=== PATIENT | male | born 1970 | race Caucasian/White ===

== ENCOUNTER 2016-08-24 11:10 | Emergency (ER) | payer BC ==
[~2016-08-24] VITALS: Ht 195.6 cm; Wt 89.8 kg
[2016-08-24 11:23] VITALS: TEMP 36.7; Ht 195.6 cm; Wt 89.8 kg
[2016-08-24] MEDS ORDERED: TRAM-10 PO (11:50)
[2016-08-24] MEDS ORDERED: AZITTAB PO (11:50)
--- NOTE | 2016-08-24 11:55 | EMERGENCY ROOM VISIT NOTE ---
History First contact with patient: 11:34 Chief Complaint: HEADACHE Stated Complaint: HEADACHE, CHEST, NUMB ALL OVER History of Present Illness The patient is a 45 year old male who presents to the Emergency Room with complaints of sinus congestion, headache and productive cough. The patient reports that he developed a cold 5 days ago, and the symptoms have significantly worsened over the past 24 hours. He denies any fevers, but has not checked his temperature. He has had chills and a poor appetite. He denies any diarrhea or urinary symptoms. He rates his discomfort a 5 out of 10. He has not taken any analgesics today for his symptoms, or other [id number] products. Review of Systems 10 system review was performed and was negative except for pertinent positives and negatives as indicated in history of present illness Past Medical/Surgical History Medical Problems: (1) negative history for asthma (2) negative history for cardiac problems (3) negative history for diabetes (4) negative history for hypertension (5) negative history for pneumonia (6) Orthopedic surgery (right wrist, right hand, right shoulder) Family History Unremarkable Social History Smoking Status: Former Smoker Alcohol Use: occasionally Drug Use: none Marital Status: Housing Status: lives with family Occupation Status: employed Current/Historical Medications Scheduled Azithromycin (Zithromax Z-Ron), 0 PO UD Scheduled PRN Tramadol (Ultram), 1-2 TAB PO Q4H PRN for Pain Allergies Coded Allergies: Amoxicillin (Verified Allergy, Intermediate, rash, 05/03/16) Rofecoxib (Verified Allergy, Unknown, PEELING SKIN, 05/03/16) Physical Exam Vital Signs Date Time Temp Pulse Resp B/P Pulse Ox O2 Delivery O2 Flow Rate FiO2 08/24/16 11:23 36.7 73 16 129/76 97 Room Air Physical Exam CONSTITUTIONAL: Healthy and well nourished. Alert and oriented X 3 with positive affect. She does not appear acutely or toxic. HEENT: Normocephalic, atraumatic. Pupils equal, round and reactive. Examination of the ears shows significant TM bulging without air-fluid levels or purulent effusion. No erythema. Clear rhinorrhea is noted. The patient has tenderness to palpation and percussion over the frontal and maxillary sinuses. 9 OROPHARYNX: Mild posterior frontal erythema without postnasal drip, tonsillar hypertrophy or exudates. NECK: Full active range of motion without discomfort. No nuchal rigidity. LYMPHATICS: No cervical chain adenopathy. RESPIRATORY: Clear to auscultation bilaterally with no wheezing, crackles, rhonchi or stridor. CARDIOVASCULAR: Regular rate and rhythm with no murmurs, rubs or gallops. MUSCULOSKELETAL: Full range of motion of all joints without discomfort. INTEGUMENTARY: No rash or other significant dermatologic conditions noted. NEUROLOGIC: No focal neurologic deficits noted. Medical Decision & Procedures ED Course Patient history and physical exam were performed. Nurse's notes were reviewed. Vital signs were reviewed and were normal. The patient will be provided a prescription for a Z-Ron and altered. He was encouraged to alternate ibuprofen and Tylenol for baseline pain relief. The patient was also urged to take Mucinex, Sudafed and Robitussin-DM for additional symptomatic relief. Follow- up with PCP if symptoms are not improving within the next week. The patient voiced understanding of all discharge instructions, and rated his overall discomfort a 4 out of 10 at the time of discharge. Medical Decision Impression Primary Impression: Acute sinusitis Additional Impression: Bronchitis Departure Information Dispostion Home / Self-Care Prescriptions Tramadol (Ultram) 50 Mg Tab 1-2 TAB PO Q4H Y for Pain, #15 TAB For Initial Treatment Prov: Radames Caldwell PA 08/24/16 Azithromycin (ZITHROMAX Z-RON) 250 Mg Tab 0 PO UD, #1 PKT 2 TABS DAY 1, THEN 1 TAB DAILY FOR 4 DAYS Prov: Radames Caldwell PA 08/24/16 Forms HOME CARE DOCUMENTATION FORM, IMPORTANT VISIT INFORMATION Patient Instructions A Signature Page, [facility] Additional Instructions Complete Zithromax antibiotics as prescribed. Suggest taking Mucinex and Sudafed. Robitussin-DM as needed for additional cough relief. Ibuprofen 800 mg and/or Tylenol 1000 mg every 8 hours. You may also alternate these medications for more effective pain relief: Ibuprofen --4 HRS--> Tylenol --4 HRS--> ibuprofen --4 HRS--> Tylenol .... Follow-up with your family doctor if symptoms are not improving within the next 5-7 days. FOR WORK: The patient was in the emergency department today for evaluation of symptoms that have been ongoing for the past 5 days.
[2016-08-24 12:32] VITALS: BP 116/77; PULSE 69; O2SAT 95
== END 2016-08-24 12:34 | disposition home or self-care (01) ==
LOC: C.EDB 11:13 → C.EDC 12:34
DX: J01.90 Acute sinusitis, unspecified (principal); J40 Bronchitis, not specified as acute or chronic; Z87.891 Personal history of nicotine dependence

== ENCOUNTER 2016-11-24 16:16 | Emergency (ER) | payer BC ==
[~2016-11-24] VITALS: Ht 195.6 cm; Wt 90.9 kg
[~2016-11-24 16:16] MED LIST: TRAM-10 PO
[2016-11-24 16:21] VITALS: BP 129/82; TEMP 36.7; Ht 195.6 cm; Wt 90.9 kg
--- NOTE | 2016-11-24 16:50 | EMERGENCY ROOM VISIT NOTE ---
History First contact with patient: 16:31 Chief Complaint: ELBOW PAIN/INJURY Stated Complaint: RT SHOULDER & ELBOW PAIN History of Present Illness The patient is a 46 year old male who presents to the Emergency Room with complaints of right elbow pain. The patient states he has had right elbow pain for approximately one month. 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 He has had pain and swelling since then. He has seen both Dr. Taylor and Dr. Simon. He states he has had cortisone injections without any relief. He states that sometimes in the evenings he feels numbness in his hand and arm. He states he has never had an x-ray. He denies any fevers. He denies any redness or warmth. He denies any neck pain. Review of Systems A 10 system review of systems was completed with positives and pertinent negatives listed in the HPI. Past Medical/Surgical History Medical Problems: (1) negative history for asthma (2) negative history for cardiac problems (3) negative history for diabetes (4) negative history for hypertension (5) negative history for pneumonia (6) Orthopedic surgery (right wrist, right hand, right shoulder) Social History Smoking Status: Current Some Day Smoker Alcohol Use: occasionally Drug Use: none Marital Status: Housing Status: lives with family Occupation Status: employed Current/Historical Medications Scheduled PRN Hydrocodone/Acetaminophen 5MG/325MG (Chelsea 5MG/325MG), 1 TABLET PO Q4H PRN for Pain Allergies Coded Allergies: Amoxicillin (Verified Allergy, Intermediate, rash, 05/03/16) Rofecoxib (Verified Allergy, Unknown, PEELING SKIN, 05/03/16) Physical Exam Vital Signs Date Time Temp Pulse Resp B/P Pulse Ox O2 Delivery O2 Flow Rate FiO2 11/24/16 17:50 63 16 98 11/24/16 16:21 36.7 64 18 129/82 99 Room Air Physical Exam VITALS: Vitals are noted on the nurse's note and reviewed by myself. Vital signs stable. GENERAL: This is a 46-year-old male, in no acute distress, nondiaphoretic, well- developed well-nourished. SKIN: The skin was without rashes, erythema, edema, or bruising. There is no tenting of the skin. Capillary reflex less than 2 seconds. HEAD: Normocephalic atraumatic. EARS: The external ears are normal in appearance. EYES: Pupils equal round and reactive to light and accommodation. Conjunctivae without injection, sclerae without icterus. Extraocular movements intact. NOSE: Patent, turbinates without inflammation or discharge. MOUTH: Mucous membranes moist. Tonsils are not enlarged. Pharynx without erythema or exudate. Uvula midline. Airway patent. Tongue does not deviate. NECK: Supple without nuchal rigidity. Cervical spine is nontender. No JVD. HEART: Regular rate and rhythm without murmurs gallops or rubs. LUNGS: Clear to auscultation bilaterally without wheezes, rales or rhonchi. No retractions or accessory muscle use. MUSCULOSKELETAL: No muscle atrophy, erythema, or edema noted. Full range of motion with moderate tenderness to palpation in the right elbow. There is decreased range of motion in the right elbow, specifically supination and pronation. Normal gait. Strength 5/5 throughout. NEURO: Patient was alert and oriented to person place and time. No focal neurological deficits. Medical Decision & Procedures ER Provider Diagnostic Interpretation: RIGHT ELBOW 3 VIEWS HISTORY: right elbow pain Right COMPARISON: Right elbow 12/18/2015. FINDINGS: There is no fracture or dislocation. Soft tissues are unremarkable. No joint effusion. The punctate intra-articular loose body is again noted. IMPRESSION: No fracture or dislocation within the right elbow. No change in the punctate intra-articular loose body within the elbow joint. ED Course The patient was seen and examined. Previous visits were reviewed. The patient does not have a fever. He does not have any significant erythema, warmth, ecchymosis, edema or deformity to the right elbow. He states he has never had an x-ray. X-ray was obtained and was similar compared to previous and does reveal a loose body which is unchanged. The patient's symptoms are likely related to tendinitis. The patient does not rest his arm. 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 He has seen 2 different orthopedic groups, Dr. Taylor and Dr. Simon and has had cortisone injections. He has not again followed up with their offices. The patient was advised that he will need to follow-up with orthopedics for further evaluation and management. I agreed to give him a very small prescription for Chelsea. He refused a sling. He should return with any worsening symptoms. Medical Decision The differential diagnosis includes sprain, strain, fracture, contusion, tendon injury, tendinitis, among others [place] Drug Monitoring Program Search Results: patient reviewed within database, no issues identified Impression Primary Impression: Elbow pain Departure Information Dispostion Home / Self-Care Condition GOOD Prescriptions Hydrocodone/Acetaminophen 5MG/325MG (Chelsea 5MG/325MG) Tab 1 TABLET PO Q4H Y for Pain, #12 TAB For Initial Treatment Prov: Taylor Leija PA-C 11/24/16 Referrals No Doctor, Assigned (PCP) Mehran Taylor, DO Patient Instructions [facility] [place] [employer] Additional Instructions Motrin 600 mg every 6-8 hours or moderate pain Chelsea 1 tablet every 6 hours if needed for worse pain. Do not drink or drive while taking Chelsea and do not take with Tylenol. Rest the elbow Contact Dr. Taylor's office first thing Sunday morning to schedule a follow-up appointment Return with worsening symptoms Problem Qualifiers Primary Impression: Elbow pain Laterality: right Qualified Codes: M25.521 - Pain in right elbow
--- NOTE | 2016-11-24 17:26 | DIAGNOSTIC IMAGING REPORT ---
RIGHT ELBOW 3 VIEWS HISTORY: right elbow pain Right COMPARISON: Right elbow 12/18/2015. FINDINGS: There is no fracture or dislocation. Soft tissues are unremarkable. No joint effusion. The punctate intra-articular loose body is again noted. IMPRESSION: No fracture or dislocation within the right elbow. No change in the punctate intra-articular loose body within the elbow joint. Electronically signed by: Sebastian Price M.D. 11/24/2016 5:23 PM Dictated Date/Time: 11/24/2016 5:22 PM
[2016-11-24] MEDS ORDERED: HYDR-5688 PO (17:42)
[2016-11-24 17:50] VITALS: PULSE 63; O2SAT 98
== END 2016-11-24 17:51 | disposition home or self-care (01) ==
LOC: C.EDB 16:17 → C.EDD 17:51
DX: M25.521 Pain in right elbow (principal); X58.XXXA Exposure to other specified factors, initial encounter; Y93.89 Activity, other specified; Y99.0 Civilian activity done for income or pay; F17.210 Nicotine dependence, cigarettes, uncomplicated

== ENCOUNTER 2017-08-17 15:14 | Emergency (ER) | payer BC, OTHER ==
[~2017-08-17] VITALS: Ht 196.9 cm; Wt 93.8 kg
[2017-08-17 15:15] VITALS: TEMP 36.8; Ht 196.9 cm; Wt 93.8 kg
[2017-08-17] MEDS ORDERED: ACET-1256 PO (15:23)
[2017-08-17] MEDS ORDERED: IBUP200C14 PO (15:23)
--- NOTE | 2017-08-17 16:15 | DIAGNOSTIC IMAGING REPORT ---
L KNEE 3 VIEWS CLINICAL HISTORY: fall; L knee pain trauma. Pain. COMPARISON: None. DISCUSSION: Moderate prepatellar soft tissue edema. No evidence for fracture or dislocation. No acute bony abnormality. IMPRESSION: Prepatellar soft tissue edema. No acute bony abnormality. The above report was generated using voice recognition software. It may contain grammatical, syntax or spelling errors. Electronically signed by: Satish Dobbins M.D. 08/17/2017 4:13 PM Dictated Date/Time: 08/17/2017 4:13 PM
[2017-08-17] MEDS ORDERED: TRAM-10 PO (16:32)
[2017-08-17 17:13] VITALS: BP 135/90; PULSE 76; O2SAT 97
--- NOTE | 2017-08-17 23:34 | EMERGENCY ROOM VISIT NOTE ---
ED Visit Note First contact with patient: 15:21 Chief Complaint: Left knee pain and swelling. History of Present Illness: Mr. Israel is a 46-year-old white male who ambulates into the ED complaining of anterior left knee pain and swelling to Patient reports 2 days ago he was at work, fell and struck his left knee on a curb. He reports since that time he has had knee pain and swelling. Currently he describes his pain as a sharp and throbbing sensation over the prepatellar area. He rates his discomfort 7/10. His pain is nonradiating. His pain worsens with palpation, ambulation, flexion beyond 30 in the last few degrees of extension. He has not identified any alleviating factors related to the pain. Has been using acetaminophen without relief. He denies any associated symptoms including hip pain, thigh pain, lower leg pain , ankle pain, leg weakness/numbness/tingling. Additionally return denies any previous significant injuries or surgeries to the knee. Review of Systems: As noted above in history of present illness. Past Medical History: Status post unspecified right shoulder surgery. Current Medications: Patient denies. Allergies to Medications: Amoxicillin, rofecoxib. Social History: Patient is currently employed; he feels safe in his home environment; he admits to tobacco use. Physical Examination: Vital Signs: Date Time Temp Pulse Resp B/P (MAP) Pulse Ox O2 Delivery O2 Flow Rate FiO2 08/17/17 17:13 76 135/90 97 08/17/17 15:15 36.8 86 17 133/94 99 Room Air GENERAL: 46-year-old male in mild to moderate distress due to pain, nontoxic- appearing, afebrile and hemodynamically stable. NEUROLOGICAL: Awake, alert and oriented to person, place and time. Answering questions appropriately and following commands. Normal gait. SKIN: Warm, dry and pink. No soft tissue trauma noted. LEFT LOWER EXTREMITY: No gross bony deformity. No shortening or malrotation. No tenderness in the hip, 5, lower leg, ankle or foot. Moderate tenderness over the anterior prepatellar area with moderate swelling. Positive patellar apprehension test. Negative ballottement test. Mild tenderness over the medial and lateral joint lines with mild swelling. No laxity of the collateral or cruciate ligament. Due to restricted range of motion meniscus testing was deferred. Decreased range of motion in flexion and extension of the knee due to pain. Full range of motion in plantar flexion and dorsiflexion of the ankle and flexion and extension of all toes. Throughout the lower leg and foot the skin was warm and pink and capillary refill is brisk. Distal pulses were intact. Sensation to light touch was intact. ED Course: Patient is assessed as noted above. Patient's medication list was reviewed. Left Knee X-Rays: Were read by myself and the radiologist showing no acute fractures or dislocations. Moderate prepatellar soft tissue edema. Patient was given ice for pain and swelling. Patient was placed in a knee immobilizer and on nonweightbearing crutches. Patient was educated about today's findings and instructed on his treatment plan ; he verbalized understanding and agreement with this plan. Clinical Impression: Left knee pain. Work related injury. Disposition: Patient discharged home in stable condition; prior to departure he was reassessed and subjectively reported he was feeling better and rated his discomfort 5/10. Plan: Comfort measures were discussed with the patient including rest, ice, elevation , knee immobilizer and crutch use and he was placed on a sliding pain medication scale of acetaminophen and Ultram; appropriate narcotics were discussed with the patient and his name was checked in the state database and no red flags were noted. Patient was signed off of work for 3 days and encouraged to follow-up with Workmen's Compensation for recheck and return to work instruction. Patient was encouraged return ED for worsening/uncontrolled pain, uncontrolled swelling, leg weakness/numbness/tingling or any new/concerning symptoms.
== END 2017-08-17 17:15 | disposition home or self-care (01) ==
LOC: C.EDB 15:15 → C.EDD 17:15
DX: M25.562 Pain in left knee (principal); Y99.0 Civilian activity done for income or pay; W01.198A Fall on same level from slipping, tripping and stumbling with subsequent striking against other object, initial encounter; Z72.0 Tobacco use